=== PATIENT | female | born 1980 | race Caucasian/White ===

== ENCOUNTER → 2016-12-17 | Outpatient (CLI) | payer OTHER ==
[~2016-12-17] MED LIST: OMEP-110 PO
== END | disposition home or self-care (01) ==
LOC: CFH 15:41
PROVIDERS: ATTEND Internal Medicine Cardiovascular Disease
DX: Q21.3 Tetralogy of Fallot (principal); I07.1 Rheumatic tricuspid insufficiency; I37.1 Nonrheumatic pulmonary valve insufficiency; Z95.0 Presence of cardiac pacemaker
CPT/HCPCS: 93306

== ENCOUNTER → 2017-04-14 | Outpatient (CLI) | payer OTHER ==
[2017-04-14 07:43] LABS: HEMOGLOBIN 15.6 g/dL (11.7-16.4); WHITE BLOOD COUNT 6.5 x10^3/uL (3.4-10)
[2017-04-14 07:53] LABS: ASPARTATE AMINO TRANSFERASE 16 U/L (15-37); BLOOD UREA NITROGEN 12 mg/dL (7-18)
== END | disposition home or self-care (01) ==
LOC: LAB 07:24
PROVIDERS: ATTEND Family Medicine
DX: Z00.00 Encounter for general adult medical examination without abnormal findings (principal)
CPT/HCPCS: 36415; 80053; 80061; 81001; 83735; 84443; 85025; 87086

== ENCOUNTER 2017-06-23 06:46 | Day surgery (SDC) | payer OTHER ==
[2017-06-20 10:54] VITALS: BP 125/93
[2017-06-20 11:19] LABS: BASOPHILS # (AUTO) 0.05 x10^3/uL (0-0.1); BASOPHILS % (AUTO) 1 % (0-1); EOSINOPHILS # (AUTO) 0.09 x10^3/uL (0-0.4); EOSINOPHILS % (AUTO) 1 % (1-7); LYMPHOCYTES # (AUTO) 2.25 x10^3/uL (1-3.4); LYMPHOCYTES % (AUTO) 23 % (22-44); MD NO; MEAN CORPUSCULAR HEMOGLOBIN 30.3 pg (27.0-34.8); MEAN CORPUSCULAR HGB CONC 33.2 g/dL (32.4-35.8); MEAN CORPUSCULAR VOLUME 91.3 fL (80-100); MEAN PLATELET VOLUME 8.6 fL (7.4-10.4); MONOCYTES # (AUTO) 0.72 x10^3/uL (0.2-0.8); MONOCYTES % (AUTO) 7 % (2-9); NEUTROPHILS # (AUTO) 6.78 x10^3/uL (1.8-6.8); NEUTROPHILS % (AUTO) 69 % (42-75); PLATELET COUNT 268 x10^3/uL (130-400); RED BLOOD COUNT 5.18 x10^6/uL (3.82-5.3); RED CELL DISTRIBUTION WIDTH 12.4 % (9.6-15.2)
[2017-06-20 11:23] LABS: INTERNATIONAL NORMALIZED RATIO 0.94 (0.93-1.1); PROTHROMBIN TIME 9.8 Seconds (9.6-11.5)
[2017-06-20 11:28] LABS: ALANINE AMINOTRANSFERASE 33 U/L (12-78); ALBUMIN 4.2 g/dL (3.4-5.0); ANION GAP 5 mmol/L (5-15); CALCIUM 8.4 mg/dL (8.5-10.1); CHLORIDE 105 mmol/L (98-107)
[2017-06-20 11:33] LABS: ALKALINE PHOSPHATASE 77 U/L (45-117); BILIRUBIN,TOTAL 0.4 mg/dL (0.2-1.0); CREATININE 0.84 mg/dL (0.55-1.02); TOTAL PROTEIN 7.7 g/dL (6.4-8.2)
[~2017-06-23] VITALS: Ht 160 cm; Wt 77.3 kg
[~2017-06-23 06:46] MED LIST changes: +METO-93 PO; +PANT40TA5 PO
[2017-06-23] MEDS ORDERED: SODIUM CHLORIDE 0.9% 1,000 ML IV SCH (06:51)
[2017-06-23] MEDS ORDERED: ONDANSETRON 2MG/ML, 2ML ONE (08:19)
[2017-06-23] MEDS ORDERED: MIDAZOLAM 1 MG/ML, 5ML ONE (08:19)
[2017-06-23] MEDS ORDERED: FENTANYL PF 100 MCG/2ML ONE (08:19)
[2017-06-23] MEDS ORDERED: ISOPROTERENOL 0.2MG/ML, 5ML ONE (08:19)
[2017-06-23] MEDS ORDERED: LIDOCAINE 2%, 20ML ONE (08:19)
[2017-06-23] MEDS ORDERED: ACETAMINOPHEN 325 MG TABLET PO PRN (09:30)
== END 2017-06-23 13:39 | disposition home or self-care (01) ==
LOC: CACL 06:46
PROVIDERS: ATTEND Internal Medicine Cardiovascular Disease
DX: I47.2 Ventricular tachycardia (principal); Z95.0 Presence of cardiac pacemaker; I10 Essential (primary) hypertension; E11.9 Type 2 diabetes mellitus without complications
CPT/HCPCS: 36415; 71046; 80053; 84703; 85025; 85610; 93620; 93623; 99156; 99157; C1730; C1894; J2250; J2405; J3010; J3490

== ENCOUNTER → 2017-07-25 | Outpatient (CLI) | payer OTHER ==
[2017-07-25 10:53] LABS: THYROID STIMULATING HORMONE 4.12 mIU/L (0.358-3.740)
== END | disposition home or self-care (01) ==
LOC: LAB 10:16
PROVIDERS: ATTEND Family Medicine
DX: E03.9 Hypothyroidism, unspecified (principal)
CPT/HCPCS: 36415; 84439; 84443; 84481

== ENCOUNTER → 2017-08-15 | Outpatient (CLI) | payer OTHER | END | disposition home or self-care (01) | LOC: RAD 08:53 | PROVIDERS: ATTEND Nurse Practitioner Family | DX: N28.1 Cyst of kidney, acquired (principal) | CPT/HCPCS: 76700 ==

== ENCOUNTER 2018-11-30 10:36 | Day surgery (SDC) | payer OTHER ==
[~2018-11-30] VITALS: Ht 160 cm; Wt 84.0 kg
[2018-11-30 11:28] VITALS: BP 112/79
== END 2018-11-30 14:35 | disposition home or self-care (01) ==
LOC: OUT 10:36
DX: K22.70 Barrett's esophagus without dysplasia (principal); K44.9 Diaphragmatic hernia without obstruction or gangrene; Z95.810 Presence of automatic (implantable) cardiac defibrillator
CPT/HCPCS: 43239; 81025; 88305; J2704; J7120

== ENCOUNTER 2019-03-11 16:31 | Inpatient (IN) | payer OTHER ==
[~2019-03-11] VITALS: Ht 160 cm; Wt 85.2 kg
[~2019-03-11 16:31] MED LIST changes: +SOTA80TA PO
[2019-03-11 17:08] LABS: BASOPHILS # (AUTO) 0.03 x10^3/uL (0-0.1); BASOPHILS % (AUTO) 0 % (0-1); EOSINOPHILS # (AUTO) 0.12 x10^3/uL (0-0.4); EOSINOPHILS % (AUTO) 1 % (1-7); LYMPHOCYTES # (AUTO) 2.26 x10^3/uL (1-3.4); LYMPHOCYTES % (AUTO) 26 % (22-44); MD NO; MEAN CORPUSCULAR HEMOGLOBIN 30.6 pg (27.0-34.8); MEAN CORPUSCULAR HGB CONC 32.4 g/dL (32.4-35.8); MEAN CORPUSCULAR VOLUME 94.4 fL (80-100); MEAN PLATELET VOLUME 8.3 fL (7.4-10.4); MONOCYTES % (AUTO) 8 % (2-9); NEUTROPHILS # (AUTO) 5.67 x10^3/uL (1.8-6.8); NEUTROPHILS % (AUTO) 65 % (42-75); PLATELET COUNT 280 x10^3/uL (130-400); RED BLOOD COUNT 4.99 x10^6/uL (3.82-5.3); RED CELL DISTRIBUTION WIDTH 12.9 % (9.6-15.2)
[2019-03-11 17:18] LABS: ALBUMIN 4.2 g/dL (3.4-5.0); ANION GAP 5 mmol/L (5-15); CALCIUM 8.8 mg/dL (8.5-10.1); CHLORIDE 107 mmol/L (98-107)
[2019-03-11 17:23] LABS: FREE T4 (FREE THYROXINE) 1.04 ng/dL (0.76-1.46); TROPONIN I < 0.015 ng/mL (0.000-0.045)
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
--- NOTE | 2019-03-11 18:59 | NUR ---
ORDERED MEAL TRAY.
--- NOTE | 2019-03-11 19:12 | NUR ---
REPORT TO DEVORAH
[2019-03-11] MEDS ORDERED: PANTOPRAZOLE 20MG TABLET PO ONE (19:31)
[2019-03-11 19:50] VITALS: BP 135/90
[2019-03-11] MEDS: SOTALOL 80MG TABLET PO SCH (22:19)
[2019-03-12 01:52] VITALS: BP 101/68
[2019-03-12] MEDS: SOTALOL 80MG TABLET PO SCH (05:59)
[2019-03-12 06:48] LABS: BASOPHILS # (AUTO) 0.02 x10^3/uL (0-0.1); BASOPHILS % (AUTO) 0 % (0-1); EOSINOPHILS # (AUTO) 0.08 x10^3/uL (0-0.4); EOSINOPHILS % (AUTO) 1 % (1-7); LYMPHOCYTES # (AUTO) 1.71 x10^3/uL (1-3.4); LYMPHOCYTES % (AUTO) 25 % (22-44); MD NO; MEAN CORPUSCULAR HEMOGLOBIN 30.9 pg (27.0-34.8); MEAN CORPUSCULAR HGB CONC 32.7 g/dL (32.4-35.8); MEAN CORPUSCULAR VOLUME 94.5 fL (80-100); MEAN PLATELET VOLUME 8.7 fL (7.4-10.4); MONOCYTES # (AUTO) 0.54 x10^3/uL (0.2-0.8); MONOCYTES % (AUTO) 8 % (2-9); NEUTROPHILS % (AUTO) 65 % (42-75); PLATELET COUNT 250 x10^3/uL (130-400); RED BLOOD COUNT 5.04 x10^6/uL (3.82-5.3); RED CELL DISTRIBUTION WIDTH 12.8 % (9.6-15.2)
[2019-03-12 06:57] LABS: ANION GAP 6 mmol/L (5-15); CHLORIDE 109 mmol/L (98-107); CREATININE 0.72 mg/dL (0.55-1.02)
[2019-03-12 07:14] VITALS: BP 119/87
[2019-03-12 12:20] VITALS: BP 108/71
[2019-03-12] MEDS ORDERED: MAGNESIUM SULFATE PMX 2GM/50ML 50 ML IV ONE (15:30)
[2019-03-12] MEDS ORDERED: MAGNESIUM SULFATE PMX 2GM/50ML 50 ML ONE (15:30)
[2019-03-12] MEDS ORDERED: LORazepam 0.5MG TABLET PO PRN (16:00)
[2019-03-12] MEDS ORDERED: SOTALOL 80MG TABLET PO ONE (16:00)
[2019-03-12] MEDS ORDERED: LORazepam 0.5MG TABLET ONE (16:02)
[2019-03-12] MEDS ORDERED: SOTALOL 80MG TABLET ONE (16:03)
[2019-03-12] MEDS: SOTALOL 120MG TABLET PO SCH (17:31)
[2019-03-12] MEDS: PANTOPROZOLE 40MG TABLET PO SCH (17:33)
[2019-03-12 19:23] VITALS: BP 113/76
[2019-03-13 01:27] VITALS: BP 94/66
[2019-03-13] MEDS: SOTALOL 120MG TABLET PO SCH ×2 (06:08→17:10)
[2019-03-13 07:20] VITALS: BP 103/80
[2019-03-13 12:09] VITALS: BP 100/66
[2019-03-13] MEDS ORDERED: SOTA120T14 PO (12:27)
[2019-03-13] MEDS: PANTOPROZOLE 40MG TABLET PO SCH (17:10)
== END 2019-03-13 17:38 | disposition home or self-care (01) | DRG 310 ==
LOC: ED 18:00 → EDIP 18:05 → INTOOBSV 18:05 → OBSVTOIN 18:05 → ED 18:34 → 5SO 19:29
PROVIDERS: ADMIT Internal Medicine; ATTEND Internal Medicine
DX: I47.2 Ventricular tachycardia (principal); I49.01 Ventricular fibrillation; K21.9 Gastro-esophageal reflux disease without esophagitis; K22.70 Barrett's esophagus without dysplasia; Z79.899 Other long term (current) drug therapy; Z87.74 Personal history of (corrected) congenital malformations of heart and circulatory system; Z95.810 Presence of automatic (implantable) cardiac defibrillator
CPT/HCPCS: 0399T; 36415; 71045; 80048; 82040; 83735; 84439; 84443; 84484; 85025; 93005; 93306; 96374; 99285; G0378; J3475

== ENCOUNTER 2019-05-07 07:15 | Outpatient (CLI) | payer OTHER ==
[~2019-05-07 07:15] MED LIST changes: +SOTA120T14 PO
== END 2019-05-07 23:59 | disposition home or self-care (01) ==
LOC: CFH 07:15
PROVIDERS: ATTEND Obstetrics & Gynecology
DX: Z12.31 Encounter for screening mammogram for malignant neoplasm of breast (principal); N64.89 Other specified disorders of breast
CPT/HCPCS: 77063; 77067

== ENCOUNTER 2019-05-24 07:08 | Outpatient (CLI) | payer OTHER ==
[2019-05-24 07:38] LABS: BASOPHILS # (AUTO) 0.02 x10^3/uL (0-0.1); BASOPHILS % (AUTO) 0 % (0-1); EOSINOPHILS % (AUTO) 2 % (1-7); LYMPHOCYTES # (AUTO) 2.14 x10^3/uL (1-3.4); LYMPHOCYTES % (AUTO) 35 % (22-44); MD NO; MEAN CORPUSCULAR HEMOGLOBIN 30.8 pg (27.0-34.8); MEAN CORPUSCULAR HGB CONC 33.5 g/dL (32.4-35.8); MEAN PLATELET VOLUME 8.2 fL (7.4-10.4); MONOCYTES % (AUTO) 10 % (2-9); NEUTROPHILS # (AUTO) 3.22 x10^3/uL (1.8-6.8); NEUTROPHILS % (AUTO) 53 % (42-75); PLATELET COUNT 265 x10^3/uL (130-400); RED BLOOD COUNT 5.18 x10^6/uL (3.82-5.3); RED CELL DISTRIBUTION WIDTH 12.4 % (9.6-15.2)
[2019-05-24 08:09] LABS: ALANINE AMINOTRANSFERASE 37 U/L (12-78); ANION GAP 6 mmol/L (5-15); CALCIUM 9.1 mg/dL (8.5-10.1); CHLORIDE 106 mmol/L (98-107); CHOLESTEROL, TOTAL 186 mg/dL (140-239); CREATININE 0.92 mg/dL (0.55-1.02); TRIGLYCERIDES 109 mg/dL (50-200); VLDL CHOLESTEROL 22 mg/dL (0-25)
[2019-05-24 08:17] LABS: ALKALINE PHOSPHATASE 72 U/L (45-117); BILIRUBIN,TOTAL 0.7 mg/dL (0.2-1.0); FREE T4 (FREE THYROXINE) 1.16 ng/dL (0.76-1.46); HDL CHOL % 25 % (28-40); HDL CHOLESTEROL (DIRECT) 46 mg/dL (40-60); LDL CHOLESTEROL,CALCULATED 118 mg/dL (54-169); LDL/HDL RATIO 2.6 (0.5-3.0); TOTAL PROTEIN 7.7 g/dL (6.4-8.2)
== END 2019-05-24 23:59 | disposition home or self-care (01) ==
LOC: LAB 07:08
PROVIDERS: ATTEND Nurse Practitioner Family
DX: Z00.00 Encounter for general adult medical examination without abnormal findings (principal); I47.2 Ventricular tachycardia; R94.6 Abnormal results of thyroid function studies
CPT/HCPCS: 36415; 80053; 80061; 84439; 84443; 85025

== ENCOUNTER → 2020-04-10 | Outpatient (CLI) | payer OTHER ==
[~2020-04-10] MED LIST changes: -PANT40TA5 PO; +PANT40TA6 PO
[2020-04-10 13:58] LABS: FREE T4 (FREE THYROXINE) 0.99 ng/dL (0.76-1.46)
== END | disposition home or self-care (01) ==
LOC: LAB 13:21
PROVIDERS: ATTEND Nurse Practitioner Family
DX: R94.6 Abnormal results of thyroid function studies (principal)
CPT/HCPCS: 36415; 84439; 84443; 84480

== ENCOUNTER → 2020-07-06 | Outpatient (CLI) | payer OTHER ==
[2020-07-06 07:37] LABS: BASOPHILS % (AUTO) 0 % (0-1); EOSINOPHILS % (AUTO) 1 % (1-7); LYMPHOCYTES % (AUTO) 22 % (22-44); MD NO; MEAN CORPUSCULAR HEMOGLOBIN 31.3 pg (27.0-34.8); MEAN CORPUSCULAR HGB CONC 33.9 g/dL (32.4-35.8); MEAN PLATELET VOLUME 7.9 fL (7.4-10.4); MONOCYTES % (AUTO) 8 % (2-9); NEUTROPHILS % (AUTO) 69 % (42-75); PLATELET COUNT 275 x10^3/uL (130-400); RED BLOOD COUNT 4.97 x10^6/uL (3.82-5.3); RED CELL DISTRIBUTION WIDTH 12.5 % (9.6-15.2)
[2020-07-06 07:46] LABS: ALANINE AMINOTRANSFERASE 35 U/L (12-78); ALBUMIN 4.2 g/dL (3.4-5.0); ANION GAP 5 mmol/L (5-15); CALCIUM 9.1 mg/dL (8.5-10.1); CHLORIDE 105 mmol/L (98-107); CREATININE 0.86 mg/dL (0.55-1.02)
[2020-07-06 07:55] LABS: ALKALINE PHOSPHATASE 70 U/L (45-117); CHOL/HDL RATIO 3.4; CHOLESTEROL, TOTAL 190 mg/dL (140-239); FREE T4 (FREE THYROXINE) 1.06 ng/dL (0.76-1.46); HDL CHOL % 29 % (28-40); HDL CHOLESTEROL (DIRECT) 56 mg/dL (40-60); LDL CHOLESTEROL,CALCULATED 114 mg/dL (54-169); TOTAL PROTEIN 7.8 g/dL (6.4-8.2); TRIGLYCERIDES 98 mg/dL (50-200); VLDL CHOLESTEROL 20 mg/dL (0-25)
== END | disposition home or self-care (01) ==
LOC: LAB 07:19
PROVIDERS: ATTEND Family Medicine
DX: Z00.00 Encounter for general adult medical examination without abnormal findings (principal); E03.9 Hypothyroidism, unspecified
CPT/HCPCS: 36415; 80053; 80061; 82306; 84439; 84443; 84481; 85025

== ENCOUNTER → 2020-07-19 | Outpatient (CLI) | payer OTHER | END | disposition home or self-care (01) | LOC: CFH 11:11 | PROVIDERS: ATTEND Obstetrics & Gynecology | DX: Z12.31 Encounter for screening mammogram for malignant neoplasm of breast (principal) | CPT/HCPCS: 77063; 77067 ==

== ENCOUNTER 2020-10-04 13:30 | Outpatient (CLI) | payer OTHER ==
[2020-11-07] MEDS ORDERED: LEVO25TA68 PO (15:15)
[2020-11-07] MEDS ORDERED: SOTA80TA PO (15:15)
== END 2020-10-04 23:59 | disposition home or self-care (01) ==
LOC: CFH 13:30
PROVIDERS: ATTEND Internal Medicine Cardiovascular Disease
DX: I08.2 Rheumatic disorders of both aortic and tricuspid valves (principal); I48.92 Unspecified atrial flutter
CPT/HCPCS: 93306; 93356

== ENCOUNTER → 2020-10-24 | Outpatient (CLI) | payer OTHER ==
[2020-10-24 16:20] LABS: FREE T4 (FREE THYROXINE) 0.98 ng/dL (0.76-1.46)
== END | disposition home or self-care (01) ==
LOC: LAB 15:46
PROVIDERS: ATTEND Family Medicine
DX: E03.9 Hypothyroidism, unspecified (principal); E55.9 Vitamin D deficiency, unspecified
CPT/HCPCS: 36415; 82306; 84439; 84443

== ENCOUNTER → 2020-11-07 | Outpatient (CLI) | payer OTHER ==
[~2020-11-07] MED LIST changes: +LEVO25TA68 PO
== END | disposition home or self-care (01) ==
LOC: STAR 11:20
PROVIDERS: ATTEND Internal Medicine
DX: Z01.818 Encounter for other preprocedural examination (principal); K21.9 Gastro-esophageal reflux disease without esophagitis; K22.70 Barrett's esophagus without dysplasia; Z95.810 Presence of automatic (implantable) cardiac defibrillator
CPT/HCPCS: 93005

== ENCOUNTER 2020-11-14 10:15 | Day surgery (SDC) | payer OTHER ==
[~2020-11-14] VITALS: Ht 160 cm; Wt 78.0 kg
[2020-11-14] MEDS ORDERED: LACTATED RINGERS 1,000 ML IV SCH (10:30)
[2020-11-14] MEDS ORDERED: CHLORHEXIDINE 15 ML UDC PO ONE (10:30)
[2020-11-14 10:42] VITALS: BP 120/86
[2020-11-14 10:45] VITALS: BP 120/86
[2020-11-14 10:52] LABS: HCG UR SG 1.004 (1.003-1.030)
[2020-11-14] MEDS ORDERED: PROPOFOL 10 MG/ML, 20ML ONE (11:08)
[2020-11-14] MEDS ORDERED: OXYcodone 5 MG/5 ML ORAL.SOL UDC PO PRN (11:30)
[2020-11-14] MEDS ORDERED: FENTANYL PF 100 MCG/2ML IV PRN (11:30)
[2020-11-14] MEDS ORDERED: PROMETHAZINE 25 MG SUPP PR PRN (11:30)
[2020-11-14] MEDS ORDERED: ACETAMINOPHEN 325 MG TABLET PO PRN (11:30)
[2020-11-14] MEDS ORDERED: LORazepam 2 MG/ML, 1ML IVPush PRN (11:30)
[2020-11-14] MEDS ORDERED: ONDANSETRON 2MG/ML, 2ML IVPush PRN (11:30)
[2020-11-14] MEDS ORDERED: METHOCARBAMOL 1,000 MG in DEXTROSE 5% 100 ML IV PRN (11:30)
[2020-11-14] MEDS ORDERED: PROMETHAZINE 25 MG/ML, 1ML IVPush PRN (11:30)
== END 2020-11-14 12:24 | disposition home or self-care (01) ==
LOC: OUT 10:15
PROVIDERS: ATTEND Internal Medicine
DX: Z09 Encounter for follow-up examination after completed treatment for conditions other than malignant neoplasm (principal); K20.90 Esophagitis, unspecified without bleeding; K22.70 Barrett's esophagus without dysplasia; K44.9 Diaphragmatic hernia without obstruction or gangrene; K31.7 Polyp of stomach and duodenum; Z88.5 Allergy status to narcotic agent
CPT/HCPCS: 43239; 81025; 88305; J7120; J2704